=== PATIENT | male | born 1965 | race Caucasian/White ===

== ENCOUNTER 2022-11-27 18:44 | Outpatient (REF) | payer OTHER, SELFPAY ==
[2022-11-27 15:18] LABS: Abs Immature Grans 0.01 10^3/uL (0.0-0.06); Absolute Basophil Count 0.04 10^3/uL (0.0-0.2); Absolute Eosinophil Count 0.06 10^3/uL (0.0-0.7); Absolute Monocyte Count 0.36 10^3/uL (0.1-0.8); Basophils % 0.9; Eosinophils % 1.4; HCT 47.4 % (40.0-50.0); HGB 16.5 g/dL (13.5-17.5); Immature Grans % 0.2; Lymphocytes % 30.7; MCH 31.4 pg (27.0-33.0); MCHC 34.8 % (32.0-36.0); MCV 90 fL (80-95); MPV 12.7 fL (8.0-11.0); Monocytes % 8.5; Neutrophils % 58.3; Platelet Count 160 10^3/uL (130-400); RBC 5.25 10^6/uL (4.36-5.78); RDW 12.2 % (11.8-14.1); RDW-SD 39.9 fL; WBC 4.23 10^3/uL (4.4-10.8)
[2022-11-27 15:25] LABS: Absolute Neutrophil Count 2.47 10^3/uL (1.2-6.7)
[2022-11-27 15:43] LABS: ALT 39 U/L (16-63); AST 20 U/L (15-37); Albumin 4.1 g/dL (3.4-5.0); Alkaline Phosphatase 71 U/L (46-116); Anion Gap 8.6 mmol/L (3-11); BUN 11 mg/dL (7-18); Bilirubin, Total 0.6 mg/dL (0.2-1.0); CO2 27.4 mmol/L (21.0-32.0); CREATININE 1.2 mg/dL (0.70-1.30); Calcium 9.1 mg/dL (8.5-10.1); Chloride 103 mmol/L (98-107); Estimated GFR 71.42 (mL/min/1.73m2); Glucose 110 mg/dL (74-106); Potassium 4.6 mmol/L (3.5-5.1); Sodium 139 mmol/L (136-145)
[2022-11-30 18:33] LABS: Lyme Ab w Rflx to Lyme Confirm Equivocal (Negative)
[2022-12-01 18:46] LABS: Anaplasma phagocytophilum Negative (Negative); B. miyamotoi PCR Negative (Negative); Babesia divergens/MO-1 Negative (Negative); Babesia duncani Negative (Negative); Babesia microti Negative (Negative); Ehrlichia chaffeensis Negative (Negative); Ehrlichia ewingii/canis Negative (Negative); Ehrlichia muris eauclairensis Negative (Negative)
[2022-12-04 08:16] LABS: Lyme IgG Ab Negative (Negative); Lyme IgM Ab Negative (Negative)
== END 2022-11-27 18:45 | disposition home or self-care (01) ==
LOC: LBN 18:44
PROVIDERS: Visit Provider Nurse Practitioner Family
DX: W57.XXXA Bitten or stung by nonvenomous insect and other nonvenomous arthropods, initial encounter (principal); T14.8XXA Other injury of unspecified body region, initial encounter
CPT/HCPCS: 80053; 86617; 87798; 85025; 86618

== ENCOUNTER 2023-01-01 09:21 | Outpatient (CLI) | payer OTHER, SELFPAY ==
[2023-01-01 10:38] LABS: Anion Gap 8.7 mmol/L (3-11); BUN 12 mg/dL (7-18); CO2 26.3 mmol/L (21.0-32.0); CREATININE 1.1 mg/dL (0.70-1.30); Calcium 8.4 mg/dL (8.5-10.1); Calculated LDL 107 mg/dL (<100); Chloride 106 mmol/L (98-107); Cholesterol 173 mg/dL (<200); Estimated GFR 79.28 (mL/min/1.73m2); Glucose 104 mg/dL (74-106); HDL Cholesterol 53 mg/dL (40-60); Potassium 4.6 mmol/L (3.5-5.1); Sodium 141 mmol/L (136-145); Triglyceride 69 mg/dL (<150)
== END 2023-01-01 09:22 | disposition home or self-care (01) ==
LOC: LBO 09:22
PROVIDERS: PCP Family Medicine; Visit Provider Family Medicine
DX: E66.3 Overweight (principal); Z68.29 Body mass index [BMI] 29.0-29.9, adult
CPT/HCPCS: 36415; 80048; 80061

== ENCOUNTER 2023-01-15 12:04 | Outpatient (CLI) | payer OTHER, SELFPAY ==
[2023-01-18 14:32] LABS: Diphtheria IgG Ab Positive; Diphtheria IgG Value 0.34 IU/mL
[2023-01-24 11:45] LABS: B. pertussis IgG Negative (Negative); B. pertussis Value 28.94 IU/mL
== END 2023-01-15 12:05 | disposition home or self-care (01) ==
LOC: LBO 12:04
PROVIDERS: PCP Family Medicine; Visit Provider Family Medicine
DX: E66.3 Overweight (principal); R73.09 Other abnormal glucose; Z01.84 Encounter for antibody response examination
CPT/HCPCS: 36415; 86615; 86648

== ENCOUNTER 2024-07-07 15:05 | Outpatient (CLI) | payer OTHER, SELFPAY ==
[2024-07-07 11:20] LABS: ALT 35 U/L (16-63); AST 20 U/L (15-37); Albumin 3.8 g/dL (3.4-5.0); Alkaline Phosphatase 67 U/L (46-116); Anion Gap 6.1 mmol/L (3-11); BUN 18 mg/dL (7-18); Bilirubin, Total 0.64 mg/dL (0.2-1.0); CO2 29.9 mmol/L (21.0-32.0); CREATININE 1.6 mg/dL (0.70-1.30); Calculated LDL 142 mg/dL (<100); Chloride 106 mmol/L (98-107); Cholesterol 221 mg/dL (<200); Estimated GFR 49.94 (mL/min/1.73m2); Glucose 113 mg/dL (74-106); HDL Cholesterol 64 mg/dL (40-60); Potassium 4.4 mmol/L (3.5-5.1); Sodium 142 mmol/L (136-145); Total Protein 7.8 g/dL (6.4-8.2); Triglyceride 76 mg/dL (<150)
== END 2024-07-07 15:06 | disposition home or self-care (01) ==
LOC: LBO 15:05
PROVIDERS: PCP Family Medicine; Visit Provider Family Medicine
DX: E66.3 Overweight (principal); Z68.25 Body mass index [BMI] 25.0-25.9, adult
CPT/HCPCS: 36415; 80053; 80061

== ENCOUNTER 2024-07-28 14:44 | Outpatient (CLI) | payer OTHER, SELFPAY ==
--- NOTE | 2024-07-28 14:30 | RT.EKG_ITS ---
APPROVED REPORT Exam: Resting ECG Reason for Exam: Irregular Heart beat Patient Location: O HR:64 bpm ECG Measurements Heart Rate 64 AXIS [place] 153 P 60 QRSd 106 QRS 14 QT 389 T 22 QTc 402 Conclusion Sinus rhythm...normal P axis, V-rate 50- 99 Consider left atrial enlargement...wide or notched P waves Otherwise normal ECG
== END 2024-07-28 14:45 | disposition home or self-care (01) ==
PROVIDERS: PCP Family Medicine; Visit Provider Emergency Medicine
DX: I49.9 Cardiac arrhythmia, unspecified (principal)
CPT/HCPCS: 93010

== ENCOUNTER 2024-07-30 13:05 | Outpatient (RCR) | payer OTHER, SELFPAY ==
--- NOTE | 2024-08-06 08:45 | W.HOLTRPT ---
Date of service: 08/06/24 Time of Service: 08:45 Holter Monitor Report Referring Provider:: Jovanni Escobar Indications:: Palpitations Holter Monitor Note: This is a 48-hour Holter monitor Predominant rhythm was sinus tachycardia with frequent episodes of supraventricular tachycardia. While in sinus rhythm average heart rate was 83. Minimum was 47. There were rare premature ventricular contractions There were frequent atrial premature beats Episodes of supraventricular tachycardia occurred. Heart rates were 1 60-1 80. It could not be determined if this was atrial tachycardia, atrial flutter or other type of SVT. These were not clearly symptomatic. Symptoms were reported which correlated to sinus rhythm and atrial premature beats, rate 115
== END 2024-08-07 23:59 | disposition home or self-care (01) ==
LOC: CARDOPNVT 13:05
PROVIDERS: PCP Family Medicine; Visit Provider Internal Medicine Cardiovascular Disease
DX: R00.2 Palpitations (principal); I47.10 Supraventricular tachycardia, unspecified
CPT/HCPCS: 93225; 93226

== ENCOUNTER 2024-07-31 02:01 | Outpatient (CLI) | payer OTHER, SELFPAY ==
[2024-07-31 15:24] LABS: ALT 42 U/L (16-63); AST 24 U/L (15-37); Albumin 4.1 g/dL (3.4-5.0); Alkaline Phosphatase 51 U/L (46-116); Anion Gap 6.4 mmol/L (3-11); BUN 21 mg/dL (7-18); Bilirubin, Total 0.85 mg/dL (0.2-1.0); CO2 27.6 mmol/L (21.0-32.0); CREATININE 1.5 mg/dL (0.70-1.30); Calcium 9.3 mg/dL (8.5-10.1); Chloride 105 mmol/L (98-107); Estimated GFR 53.96 (mL/min/1.73m2); Glucose 96 mg/dL (74-106); Potassium 4.1 mmol/L (3.5-5.1); Sodium 139 mmol/L (136-145)
== END 2024-07-31 02:02 | disposition home or self-care (01) ==
LOC: LBO 02:14
PROVIDERS: PCP Family Medicine; Visit Provider Emergency Medicine
DX: R00.2 Palpitations (principal); E03.9 Hypothyroidism, unspecified
CPT/HCPCS: 36415; 80053; 84443

== ENCOUNTER 2024-08-27 11:17 | Outpatient (CLI) | payer OTHER, SELFPAY ==
--- NOTE | 2024-08-27 11:15 | RT.EKG_ITS ---
APPROVED REPORT Exam: Resting ECG Reason for Exam: baseline Patient Location: O HR:68 bpm ECG Measurements Heart Rate 68 AXIS [place] 161 P 65 QRSd 100 QRS 35 QT 387 T 31 QTc 412 Conclusion Sinus rhythm...normal P axis, V-rate 50- 99 Late transition
== END 2024-08-27 11:18 | disposition home or self-care (01) ==
LOC: DI.CARD 11:17
PROVIDERS: PCP Family Medicine; Visit Provider Internal Medicine Cardiovascular Disease
DX: I47.10 Supraventricular tachycardia, unspecified (principal)
CPT/HCPCS: 93010

== ENCOUNTER 2025-01-18 08:00 | Outpatient (CLI) | payer OTHER, SELFPAY | END 2025-01-18 08:01 | disposition home or self-care (01) | PROVIDERS: PCP Family Medicine; Visit Provider Internal Medicine Cardiovascular Disease | DX: I47.10 Supraventricular tachycardia, unspecified (principal) | CPT/HCPCS: 93270 ==

== ENCOUNTER 2025-02-18 07:14 | Outpatient (CLI) | payer OTHER, SELFPAY ==
--- NOTE | 2025-02-18 12:33 | W.CARDEVENT ---
Date of service: 02/18/25 Time of Service: 12:33 Cardiac Event Recorder Referring Provider:: Shakeel Indications:: Tachycardia Cardiac Event Note: This is a cardiac event monitor. Patient was monitored for 27 days and 22 hours Predominant rhythm was sinus. Average heart rate overall was 73 There were multiple episodes of atrial fibrillation/flutter, with heart rates 150- 180. It was not clear how many of these were symptomatic There were no significant ventricular dysrhythmias There was no high-grade AV block, no pauses greater than 3 seconds Some reported symptoms did correlate to atrial fibrillation
== END 2025-02-18 07:15 | disposition home or self-care (01) ==
LOC: CARDOPNVT 07:14
PROVIDERS: PCP Family Medicine; Visit Provider Internal Medicine Cardiovascular Disease
DX: R00.0 Tachycardia, unspecified (principal); I48.91 Unspecified atrial fibrillation; I48.92 Unspecified atrial flutter
CPT/HCPCS: 93272

== ENCOUNTER 2025-06-11 02:26 | Outpatient (CLI) | payer OTHER, SELFPAY ==
[2025-06-11 08:42] LABS: ALT 32 U/L (10-49); AST 24 U/L (<34); Albumin 4.2 g/dL (3.2-5.0); Alkaline Phosphatase 68 U/L (46-116); Anion Gap 8.7 mmol/L (3-11); BUN 31 mg/dL (9-23); Bilirubin, Total 0.80 mg/dL (0.2-1.2); CO2 25.3 mmol/L (20.0-31.0); Calcium 9.8 mg/dL (8.3-10.6); Chloride 104 mmol/L (98-107); Cholesterol 212 mg/dL (<200); Glucose 106 mg/dL (74-106); HDL Cholesterol 56 mg/dL (>40); Potassium 4.4 mmol/L (3.5-5.1); Sodium 138 mmol/L (136-145); Total Protein 7.3 g/dL (5.7-8.2)
== END 2025-06-11 02:27 | disposition home or self-care (01) ==
LOC: LBO 02:26
PROVIDERS: PCP Family Medicine; Visit Provider Family Medicine
DX: E78.5 Hyperlipidemia, unspecified (principal)
CPT/HCPCS: 36415; 80053; 80061